=== PATIENT | female | born 1990 | race Caucasian/White ===

== ENCOUNTER 2019-09-17 06:03 | Outpatient (CLI) | payer BC ==
[~2019-09-17] VITALS: Ht 170.2 cm; Wt 72.3 kg
--- NOTE | 2019-09-17 08:16 | HISTORY AND PHYSICAL ---
DATE OF SERVICE: 09/17/2019 REFERRING PHYSICIAN: Dr. Alcantar. HISTORY OF PRESENT ILLNESS: The patient is a 28-year-old female who was referred over to us for complaints of worsening heartburn and reflux over the last two months. The patient reports that she has had this for approximately 10 to 12 years and has been on the medication. She reports that over the last two months, this has become significantly worse and does not appear to be controlled with medication. She reports that she is currently on omeprazole 40 mg b.i.d. as well as taking Tums and Rolaids as needed for the continued heartburn. She reports that she has tried Protonix in the past and feels that this made it worse. She reports that she will get episodes of regurgitation and get a metal taste in her mouth. She reports at times her symptoms do get better with food, but not always. She reports that she gets a burning sensation in the epigastric region up to her chest. She reports that she has noticed that spicy foods tend to make this worse as well as when she is under increased stress. She reports that in November 2018, she did travel overseas to [place] as well as [place], but does not believe that she encountered any contaminated food or beverages. She reports that she has never had an upper endoscopy before. PAST MEDICAL HISTORY: Gastroesophageal reflux disease. PAST SURGICAL HISTORY: Right wrist ORIF, partial parotidectomy 03/2015. ALLERGIES: DOXYCYCLINE. MEDICATIONS: Omeprazole 40 mg b.i.d., control daily. SOCIAL HISTORY: Negative for smoke, social for alcohol. FAMILY HISTORY: Mother, breast cancer. Father, hypertension. Brother, hypertension. Paternal grandfather, colon cancer, lung cancer, diabetes, stroke, myocardial infarction, hypertension. VITAL SIGNS: Blood pressure is 118/54. Current weight is 159.9 at 5 feet 7 inches. REVIEW OF SYSTEMS: Well-nourished female, in no acute distress. She is not experiencing any shortness of breath or difficulty breathing. No chest pain, palpitations or diaphoresis. No nausea or vomiting. She does report epigastric burning discomfort. No diarrhea or constipation. No red blood per rectum. No dark tarry stools. No fever or chills. No recent inadvertent weight loss. All other review of systems negative. PHYSICAL EXAMINATION: CHEST: Clear. Good breath sounds bilaterally. HEART: Regular, no murmurs. EXTREMITIES: No lower extremity edema. Negative Homans sign. HEENT: No scleral icterus. No cervical lymphadenopathy. ABDOMEN: Soft, nontender, nondistended. SKIN: Warm, dry and pink. NEUROLOGIC: Awake, alert, oriented x3. ASSESSMENT AND PLAN: A 28-year-old female with gastroesophageal reflux disease versus peptic ulcer disease. 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 We will also have her continue to avoid any spicy, greasy, acidic, caffeine, alcohol, tobacco products. It was also discussed with her about due to the medication being less effective, we will proceed with an EGD. The risks and benefits of the procedure as well as the procedure and home care instructions were explained to the patient. The patient verbalized understanding of instructions and agrees to this plan. At this time, we will proceed with scheduling the patient for an EGD. Job ID: [id number] DocumentID: [id number] Dictated Date: 09/13/2019 11:46:53 Molded Goods Operator Date: 09/13/2019 12:52:52 Dictated By: SHEA LONDON APRN
[2019-09-17] MEDS ORDERED: bcp PO (14:54)
[2019-09-17] MEDS ORDERED: OMEP40CA36 PO (14:54)
== END 2019-09-17 14:58 | disposition home or self-care (01) ==
LOC: PREOP 06:03
PROVIDERS: ATTEND Surgery
DX: Z01.818 Encounter for other preprocedural examination (principal)

== ENCOUNTER 2019-09-20 12:15 | Day surgery (SDC) | payer BC ==
[~2019-09-20] VITALS: Ht 170.2 cm; Wt 72.3 kg
[2019-09-20] VITALS (9 sets, daily range): BP systolic 116–139; BP diastolic 65–95
[~2019-09-20 12:15] MED LIST: OMEP40CA36 PO; bcp PO
[2019-09-20] MEDS ORDERED: NS IV 500 ML 500 ML IV PRN (12:27)
[2019-09-20] MEDS ORDERED: fentaNYL INJECTION 100 MCG/2 ML AMP IVP ONE (12:30)
[2019-09-20] MEDS ORDERED: LIDOCAINE JELLY 2% 6 ML SYRINGE MM PRN (12:30)
[2019-09-20] MEDS ORDERED: HURRICAINE EXT TUBE (BENZOCAINE) XX PRN (12:30)
[2019-09-20] MEDS ORDERED: NS IV 500 ML 500 ML ONE (12:32)
[2019-09-20] MEDS ORDERED: MIDAZOLAM 5 MG/5 ML (VERSED) VIAL ONE ×2 (13:36)
[2019-09-20] MEDS ORDERED: fentaNYL INJECTION 100 MCG/2 ML AMP ONE (13:37)
[2019-09-20] MEDS ORDERED: HURRICAINE EXT TUBE (BENZOCAINE) ONE (13:37)
[2019-09-20] MEDS ORDERED: LIDOCAINE JELLY 2% 6 ML SYRINGE ONE (13:37)
--- NOTE | 2019-09-20 13:41 | Progress Note-Pre Operative ---
Pre-Operative Progress Note H&P Reviewed The H&P was reviewed, patient examined and no changes noted. Date Seen by Provider: Sep 20, 2019 Time Seen by Provider: 13:00 Date H&P Reviewed: Sep 20, 2019 Time H&P Reviewed: 13:00 Pre-Operative Diagnosis: GERD WENDY HALE MD Sep 20, 2019 13:41 POS
--- NOTE | 2019-09-20 13:41 | Conscious Sedation/ASA ---
Conscious Sedation Pre-Proced Time 13:00 ASA Score 1 For ASA 3 and 4: Consider anesthesia and medical clearance. Also, for patients with a history of failed moderate sedation consider anesthesia. Airway Lungs Heart ASA score ASA 1: a normal healthy patient ASA 2: a patient with a mild systemic disease (mid diabetes, controlled hypertension, obesity ASA 3: a patient with a severe systemic disease that limits activity (angina, COPD, prior Myocardial infarction) ASA 4: a patient with an incapacitating disease that is a constant threat to life (CHF, renal failure) ASA 5: a moribund patient not expected to survive 24 hrs. (ruptured aneurysm) ASA 6: a declared brain- patient whose organs are being harvested. For emergent operations, add the letter E after the classification Mallampati Classification Grade 2 Sedation Plan Analgesia, Amnesia, Plan communicated to team members, Discussed options with patient/fam, Discussed risks with patient/fam The patient is an appropriate candidate to undergo the planned procedure, sedation, and anesthesia. The patient immediately re-assessed prior to indication. WENDY HALE MD Sep 20, 2019 13:41 POS
--- NOTE | 2019-09-20 13:43 | Discharge Inst-Surgical ---
D/C Lap Instructions-GEOFFREY Follow Up Activity as tolerated High Fiber Diet 25g or more per day Avoid Alcohol, Caffeine, Spicy [place] and Acid foods. Drink 64 fluid oz or more of fluids per day. Symptoms to Report: Fever over 101 degree F, Nausea/Vomiting If any problems/questions: Contact your physician or go to Emergency Room WENDY HALE MD Sep 20, 2019 13:43 POS
[2019-09-20] MEDS ORDERED: morphine INJ 10 MG/ML 1ML (SYR OR VIAL) IVP PRN ×2 (13:45)
[2019-09-20] MEDS ORDERED: ONDANSETRON 4 MG (ZOFRAN) ORAL DISSOLVE TAB PO PRN (13:45)
[2019-09-20] MEDS ORDERED: ACETAMINOPHEN 325 MG TABLET PO PRN (13:45)
[2019-09-20] MEDS: MIDAZOLAM 5 MG/5 ML (VERSED) VIAL IV PRN ×5 (13:45→14:03)
[2019-09-20] MEDS ORDERED: HYDROcodone/APAP 5 MG/325 MG (LORTAB) TAB PO PRN (13:45)
--- NOTE | 2019-09-21 10:45 | OPERATIVE REPORT ---
DATE OF SERVICE: 09/20/2019 ATTENDING AND PRIMARY CARE PHYSICIAN: Zita Alcantar DO PREOPERATIVE DIAGNOSIS: Persistent gastroesophageal reflux disease. POSTOPERATIVE DIAGNOSES: Reflux esophagitis stage II, small hiatal hernia 2 cm in size, mild to moderate gastritis and duodenitis. No formal ulcerations. PROCEDURE: EGD with biopsy. SURGEON: Wendy Hale MD ANESTHESIA: Conscious sedation. ESTIMATED BLOOD LOSS: Minimal. FINDINGS: Reflux esophagitis stage II, small hiatal hernia 2 cm in size, mild to moderate gastritis and duodenitis. No formal ulcerations. DISPOSITION: The patient tolerated the procedure well. INDICATIONS: The patient is a 28-year-old female who has had a history of gastroesophageal reflux disease for 10 years; however, this has worsened over time to the point where she does have significant epigastric burning sensation as well as pain. She was initially started on Protonix; however, states that this made her feel worse and then placed on omeprazole 40 mg and states that this has helped. She does have considerable risk factors including a stressful job as well as drinking alcohol up to 5 times a week. DESCRIPTION OF PROCEDURE: The patient was brought to the endoscopy suite, laid in the left lateral decubitus position. After adequate IV pain and sedative medications and conscious sedation anesthesia, the mouthpiece was applied. The endoscope was placed in the mouth, visualizing the pharynx and hypopharyngeal region. Vocal cords, epiglottis and vallecula identified and appeared to be normal. The endoscope was then gently intubated into the esophageal opening and esophagus insufflated. The endoscope was then advanced through the first, second, and third portions of esophagus at the level of the GE junction, reflux esophagitis stage II identified. There were no ulcers or strictures identified in this region. A biopsy was taken with forceps with visualization of good hemostasis. The endoscope was then advanced in the stomach and endoscope retroflexed, visualizing a small hiatal hernia approximately 2 cm in size. There was a mild to moderate gastritis as well as duodenitis. No formal ulcerations, polyps, or any neoplasms. A biopsy was taken of the antrum to rule out H. pylori with visualization of good hemostasis. Endoscope was then slowly withdrawn while taking a second look and suctioning of residual air with no additional findings. The patient tolerated the procedure well. We will recommend conservative medical therapy with the necessary lifestyle and diet accommodation including decreasing her alcohol intake as well as avoidance of spicy, greasy and acidic foods as well as taking in small and more frequent meals and avoidance of eating at night. She states that the omeprazole 40 mg daily has helped and we will have her continue with that for now. We will also await the biopsy results. If she continuously becomes symptomatic despite maximal medical therapy, she may be a candidate for antireflux procedure; however, before proceeding with this, we would proceed with additional testing including an esophageal manometry study to rule out dysmotility as well as a pH probe to verify significant low pH of less then 4 for at least 90 minutes being exposed to the gastroesophageal junction. Job ID: [id number] DocumentID: [id number] Dictated Date: 09/20/2019 14:20:40 Hand Striper Date: 09/21/2019 00:38:29 Dictated By: WENDY HALE MD MTDD
== END 2019-09-20 15:00 | disposition home or self-care (01) ==
LOC: ENDO 12:15
PROVIDERS: ATTEND Surgery
DX: K21.0 Gastro-esophageal reflux disease with esophagitis (principal); K44.9 Diaphragmatic hernia without obstruction or gangrene; K29.50 Unspecified chronic gastritis without bleeding; K29.80 Duodenitis without bleeding; K31.89 Other diseases of stomach and duodenum
CPT/HCPCS: 84703; 88305